=== PATIENT | male | born 1985 | race Caucasian/White ===

== ENCOUNTER 2019-11-26 09:22 | Outpatient (CLI) | payer MEDICARE, MEDICAID, SELFPAY ==
--- NOTE | ~2019-11-26 | US_ITS ---
EXAMINATION: US right upper quadrant DATE: 11/26/2019 09:57 INDICATION: Right upper quadrant abdominal pain. TECHNIQUE: Multiple grayscale and Doppler ultrasound images of the abdomen were obtained. COMPARISON: None FINDINGS: The pancreas is obscured by bowel gas. There is diffuse hepatic steatosis. No liver surface nodularity. There is normal flow in main portal vein. The gallbladder is normal in size. No gallston es or gallbladder wall thickening. There was no sonographic Ward sign. The common duct is normal an d measures 3 mm. IMPRESSION: 1. Diffuse hepatic steatosis. Reviewed, dictated and finalized at location A. [employer]
== END 2019-11-26 09:23 | disposition home or self-care (01) ==
LOC: ANHIMG 09:32
PROVIDERS: PCP Family Medicine; Visit Provider Family Medicine
DX: R10.11 Right upper quadrant pain (principal); K76.0 Fatty (change of) liver, not elsewhere classified
CPT/HCPCS: 76705